=== PATIENT | male | born 2000 | race Caucasian/White ===

== ENCOUNTER → 2020-03-11 11:36 | Outpatient (BNVA) | payer SELFPAY | PROVIDERS: Family Provider Family Medicine; PCP Family Medicine; Visit Provider Emergency Medicine | DX: S69.90XA Unspecified injury of unspecified wrist, hand and finger(s), initial encounter (principal); W55.22XA Struck by cow, initial encounter | CPT/HCPCS: 73130 ==

== ENCOUNTER 2020-09-16 14:10 | Emergency (ER) | payer SELFPAY ==
[2020-09-16 14:21] VITALS: BP 146/84; PULSE 80; RESP 18; TEMP 37.1; O2SAT 98; BMI 25.0
--- NOTE | 2020-09-16 14:34 | US_ITS ---
WS: [id number] SCROTAL ULTRASOUND EXAMINATION CLINICAL INFORMATION: pain COMPARISON: None. FINDINGS: TESTES Normal in size and echotexture, without focal lesion. Color Doppler: Normal color Doppler flow pattern. Right testes size: 5.2 cm x 3.8 cm x 3.0 cm. Left testes size: 4.6 cm x 2.9 cm x 2.6 cm. EPIDIDYMIDES Enlarged left epididymis with increased vascularity consistent with epididymitis. Normal right epidid ymis Right epididymis size: cm x cm x 0.5 cm. Left epididymitis size: cm x cm x 0.7 cm. HYDROCELE Small bilateral hydroceles. Internal debris in the left hydrocele. VARICOCELE None. OTHER FINDINGS None. US/US scrotum [id number] IMPRESSION: 1. Small bilateral hydroceles. Small amount of debris in the left varicocele. 2. Testicles are normal in size and echotexture bilaterally. Normal vasculari ty. 3. Increased vascularity with enlarged left epididymis consistent with epididy mitis.
--- NOTE | 2020-09-16 14:59 | ED_ITS ---
HPI - Male Genitourinary General: Chief complaint: Urogenital-Male Stated complaint: TESTES PAIN Time Seen by Provider: 09/16/20 14:34 History of Present Illness: HPI Narrative: 20-year-old male presents emergency room with complaint of testicular pain. He has had this for the last couple of days he denies dysuria urgency or frequency no direct trauma no history of trauma no history of STDs no history of hernias is not previously had a vasectomy. No flank pain. MD Complaint: testicle pain Onset (ago): day(s) Duration: constant Location: right testicle and left testicle Severity: mild Quality: aching Relieving factors: none Exacerbating factors: none Associated symptoms: Deny discharge, dysuria, fevers/chills, hematuria, nausea, rash, swelling, urinary incontinence, urinary retention, mass or vomiting Review of Systems Const: Denies: fever(s), chills, body aches, change in appetite, fatigue or malaise ENMT: Denies: throat pain, ear or mastoid pain, nasal discharge or nasal congestion Card: Denies: chest pain, edema, dyspnea on exertion or orthopnea Resp: Denies: dyspnea, productive cough or non-productive cough GI: Denies: nausea or vomiting : Denies: dysuria, urinary incontinence or hematuria Skin/Breast: Denies: rash or pruritus PFSH ED PFSH: Social History Smoking and tobacco status: never smoked Alcohol intake: never Physical Exam Const: COMMON NORMALS: no acute distress GENERAL APPEARANCE: cooperative and comfortable ORIENTATION/CONSCIOUSNESS: Yes awake, Yes oriented to person, Yes oriented to place and Yes oriented to time HENMT: COMMON NORMALS: normocephalic, atraumatic and hearing grossly normal bilaterally HEAD & SCALP: normocephalic and atraumatic Neck/C-Spine: COMMON NORMALS: no JVD Resp: COMMON NORMALS: normal respiratory effort, No retractions, No use of accessory muscles and clear to auscultation bilaterally AUSCULTATION: clear to auscultation bilaterally Cardio: COMMON NORMALS: no JVD, regular rate, regular rhythm and No murmurs present (Cardio) RATE: regular rate RHYTHM: regular rhythm GI: COMMON NORMALS: Soft to palpation and No hepatosplenomegaly present AUSCULTATION: Yes normoactive bowel sounds PALPATION: Yes Soft to palpation, No Tenderness to palpation present (GI), No Guarding due to palpation present (GI) and Yes No hepatosplenomegaly present Extremity: COMMON NORMALS: normal to inspection, capillary refill normal, no clubbing, cyanosis or edema, no calf tenderness and no pedal edema Neuro: SENSORIUM/ORIENTATION: Yes oriented to person, Yes oriented to place and Yes oriented to time Skin: COMMON NORMALS: no rashes or lesions noted GENERAL SKIN EXAM: no rashes or lesions noted Course Vital Signs: Vital signs: Vital Signs Temperature 98.8 F 09/16/20 14:21 Pulse Rate 56 L 09/16/20 16:14 Respiratory Rate 17 09/16/20 16:14 Blood Pressure 129/75 09/16/20 16:14 Pulse Oximetry 99 09/16/20 16:14 MDM - Male MDM Narrative: Medical decision making narrative: UA negative epididymitis on ultrasound treat with doxycycline anti-inflammatories ice testicular support follow-up as needed Lab Data: Labs: Lab Results 09/16/20 09/16/20 09/16/20 Range/Units 14:48 14:48 15:47 WBC 6.5 (4.0-10.0) 10^3/ uL RBC 5.04 (4.1-5.3) 10^6/u L Hgb 15.1 (11.7-16.6) g/dL Hct 44.0 (42.0-52.0) % MCV 87.3 (80-94) fL MCH 30.0 (28.0-34.0) pg MCHC 34.3 (30.0-36.0) g/dL RDW 12.6 (12.1-15.1) % Plt Count 210 (130-400) 10^3/c mm MPV 11.0 H (7.4-10.4) fL Neut % (Auto) 65.5 % Lymph % (Auto) 25.5 % [place] % (Auto) 7.7 % Eos % (Auto) 0.8 % Baso % (Auto) 0.3 % Neut # (Auto) 4.24 (1.8-7.7) 10^3/u L Lymph # (Auto) 1.7 (0.8-4.8) 10^3/u L [place] # (Auto) 0.5 (0.2-0.9) 10^3/u L Eos # (Auto) 0.1 (0.0-0.8) 10^3/u L Baso # (Auto) 0.0 (0.0-0.1) 10^3/u L Nucleated RBC % (a uto) 0 % Nucleated RBCs # 0.0 /100WBC Sodium 139 (136-145) mmol/L Potassium 4.3 (3.5-5.1) mmol/L Chloride 102 (98-107) mmol/L Carbon Dioxide 25 (22-29) mmol/L Anion Gap 16.3 (5-19) BUN 17 (6-20) mg/dL Creatinine 0.7 (0.7-1.2) mg/dL GFR Calculation 142.4 H (90-130) mL/min Glucose 89 (65-115) mg/dL Calculated Osmolal ity 289 (285-295) mOsm/k g Calcium 9.2 (8.5-10.5) mg/dL Total Bilirubin 0.6 (0.15-1.2) mg/dL AST 15 (0-40) U/L ALT 11 (0-41) U/L Alkaline Phosphata se 80 (40-130) IU/L Total Protein 7.4 (6.6-8.7) g/dL Albumin 5.0 (3.5-5.2) g/dL Globulin 2.4 (1.3-4.6) g/dL Urine Color Yellow (Yellow) Urine Appearance Clear (CLEAR) Urine pH 5 (5-7) Ur Specific Gravit y 1.015 (1.005-1.030) Urine Protein Neg (Negative) Urine Glucose (UA) Norm (Normal) Urine Ketones Negative (Negative) Urine Blood Neg (Negative) Urine Nitrate Negative (Negative) Urine Bilirubin Neg (Negative) Urine Urobilinogen Norm (Negative) mg/dL Ur Leukocyte Stacey ase Negative (Negative) Discharge Plan Discharge Patient Disposition: Home Clinical Impression: Epididymitis Condition: Stable Prescriptions: New doxycycline hyclate 100 mg capsule 100 mg PO BID 10 Days Qty: 20 RF: 0 diclofenac sodium 75 mg tablet,delayed release (DR/EC) 75 mg PO Q12H PRN (Reason: pain) Qty: 20 RF: 0 Discharge Orders: Discharge ED (Routine); Ordered 09/16/20 Ordered By: Wade Villatoro Referrals: Marco Antonio Huff, [Primary Care Provider] - Discharge Diet: Usual diet Discharge Activity: Increase activity as tolerated Patient Instructions: Opioid Safety Coding Level of Care Code ED Supervisor [employer] for Chg Fwd Exam Comprehensive
[2020-09-16 15:07] LABS: Basophils % 0.3 %; Eosinophils # 0.1 10^3/uL (0.0-0.8); Eosinophils % 0.8 %; Hemoglobin 15.1 g/dL (11.7-16.6); Lymphocytes # 1.7 10^3/uL (0.8-4.8); Lymphocytes % 25.5 %; Mean Corpuscular HGB Conc 34.3 g/dL (30.0-36.0); Mean Corpuscular Volume 87.3 fL (80-94); Monocytes # 0.5 10^3/uL (0.2-0.9); Monocytes % 7.7 %; Neutrophils # 4.24 10^3/uL (1.8-7.7); Neutrophils % 65.5 %; Nucleated Red Blood Cells % 0 %; Platelet Count 210 10^3/cmm (130-400); Red Blood Count 5.04 10^6/uL (4.1-5.3); Red Cell Distribution Width 12.6 % (12.1-15.1); White Blood Count 6.5 10^3/uL (4.0-10.0)
[2020-09-16 15:18] LABS: Alanine Aminotransferase 11 U/L (0-41); Alkaline Phosphatase 80 IU/L (40-130); Anion Gap 16.3 (5-19); Aspartate Amino Transferase 15 U/L (0-40); Blood Urea Nitrogen 17 mg/dL (6-20); Calcium 9.2 mg/dL (8.5-10.5); Carbon Dioxide 25 mmol/L (22-29); Chloride 102 mmol/L (98-107); Creatinine Clr Calc Pharmacy 151.3841; Globulin 2.4 g/dL (1.3-4.6); Glomerular Filtration Rate 142.4 mL/min (90-130); Glucose 89 mg/dL (65-115); Osmolality Calculated 289 mOsm/kg (285-295); Potassium 4.3 mmol/L (3.5-5.1); Sodium 139 mmol/L (136-145); Total Bilirubin 0.6 mg/dL (0.15-1.2); Total Protein 7.4 g/dL (6.6-8.7)
[2020-09-16 15:48] LABS: Add Urine Microscopic? NO; Charge for UA Resulting for Rev
[2020-09-16 15:53] LABS: Bilirubin Urine Neg (Negative); Blood Urine Neg (Negative); Glucose Urine UA Norm (Normal); Ketones Urine Negative (Negative); Leukocyte Esterase Urine Negative (Negative); Nitrate Urine Negative (Negative); Protein Urine Neg (Negative); Specific Gravity, Urine 1.015 (1.005-1.030); Urine Appearance Clear (CLEAR); Urine Color Yellow (Yellow); Urobilinogen Urine Norm (Negative); pH Urine 5 (5-7)
[2020-09-16 16:08] VITALS: BP 129/75; PULSE 56; RESP 17; O2SAT 99
[2020-09-16 16:14] VITALS: BP 129/75; PULSE 56; RESP 17; O2SAT 99
== END 2020-09-16 16:15 | disposition home or self-care (01) ==
PROVIDERS: Emergency Provider Family Medicine; PCP Family Medicine
DX: N45.1 Epididymitis (principal)
CPT/HCPCS: 76870; 80053; 81003; 85025; 99283